=== PATIENT | female | born 1960 | race Caucasian/White ===

== ENCOUNTER 2025-03-12 11:55 | Day surgery (SDC) | payer MEDICARE, MEDICAID, SELFPAY ==
--- NOTE | 2025-03-09 06:00 | EKG_ITS ---
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
[2025-03-09 12:44] LABS: Basophils # (Auto) 0.1 Thou/mm3 (0.0-0.2); Basophils % (Auto) 1 % (0-2.5); Eosinophils # (Auto) 0.3 Thou/mm3 (0.0-0.5); Eosinophils % (Auto) 4 % (0-10); Hematocrit 37.6 % (36.0-46.0); Hemoglobin 12.7 g/dL (12.0-16.0); Immature Granulocytes Auto 0.01 Thou/mm3 (0.00-0.00); Lymphocytes # (Auto) 2.4 Thou/mm3 (1.0-4.8); Lymphocytes % (Auto) 30 % (10-50); Mean Corpuscular HGB Conc 33.8 g/dl (31.0-37.0); Mean Corpuscular Hemoglobin 31.0 pg (25.0-35.0); Mean Corpuscular Volume 92 fL (80-100); Monocytes # (Auto) 0.8 Thou/mm3 (0.0-0.8); Monocytes % (Auto) 10 % (0-12); Neutrophils # (Auto) 4.4 Thou/mm3 (1.8-7.7); Neutrophils % (Auto) 55 % (37-80); Nucleated Red Blood Cell # 0.00 Thou/mm3 (0.00-0.00); Nucleated Red Blood Cell % 0 /100 WBC (0); Platelet Count 230 Thou/mm3 (140-440); RDW Standard Deviation 44.6 fL (36.4-46.3); Red Blood Count 4.10 Miln/mm3 (4.00-5.20); White Blood Count 8.0 Thou/mm3 (3.6-11.0)
[2025-03-09 12:54] LABS: INR 0.9 (0.9-1.3); Partial Thromboplastin Time 26.5 Seconds (22.0-36.0); Prothrombin Time 10.4 Seconds (9.0-12.2)
[2025-03-09 13:02] LABS: Alanine Aminotransferase 14 U/L (10-49); Albumin, Serum 4.3 gm/dL (3.4-4.8); Albumin/Globulin Ratio 1.7 (1.2-2.2); Alkaline Phosphatase 86 U/L (46-116); Anion Gap 7 (7-16); Aspartate Amino Transferase 22 U/L (0-34); BUN/Creatinine Ratio 17 Ratio (12-20); Bilirubin,Total 0.5 mg/dL (0.3-1.2); Blood Urea Nitrogen 19 mg/dL (9-23); Calcium 9.1 mg/dL (8.3-10.6); Calcium (Corrected) 9.1 mg/dL (8.5-10.1); Carbon Dioxide 28.9 mMol/L (20.0-31.0); Chloride 98 mMol/L (98-107); Creatinine (Component) 1.1 mg/dL (0.6-1.3); Globulin 2.6 gm/dL (2.3-3.5); Glucose 84 mg/dL (74-106); Osmolality,Calculated 269 (275-295); Potassium 4.4 mMol/L (3.4-5.1); Sodium 134 mMol/L (136-145); Total Protein 6.9 gm/dL (5.7-8.2); eGFR 56 See Note
[2025-03-12] VITALS (8 sets, daily range): BP systolic 146–184; BP diastolic 92–120; PULSE 86–99; RESP 14–20; TEMP 36.2–36.6; O2SAT 94–100; BMI 30.4
[2025-03-12] MEDS: RINGERS LACTATED 1000 ML 1,000 ML 20 ML IV ×2 (13:00→13:32)
--- NOTE | 2025-03-12 13:47 | SUR.PHASEII ---
pt received from OR in recovery bay 4. pt asleep but responds to voice, breathing unlabored on oxymask 4l. v/s stable. report received from Светлана LENNON and Dr. Joy.
--- NOTE | 2025-03-12 14:07 | XR_ITS ---
Examination: Gastrografin enema with KUB 20 spot fluoroscopic films of the colon Fluoroscopy March 12, 2025 1429 hours INDICATIONS: Incomplete colonoscopy today. FINDINGS: Manager Physical AP abdomen demonstrates mild small bowel ileus Colon filled retrograde matter to the cecum with reflux into terminal ileum Mild stool throughout the colon No constricting colonic lesion No rectal or other ulcerations Normal haustral pattern No diverticulosis IMPRESSION: No colonic lesions identified
--- NOTE | 2025-03-12 14:25 | SUR.PHASEII ---
pt taken down to radiology for barium enema xray for incomplete colonoscopy.
--- NOTE | 2025-03-12 15:55 | SUR.PHASEII ---
pt picked up from radiology
--- NOTE | 2025-03-12 16:25 | SUR.PHASEII ---
pt awake and alert, breathing unlabored on room air. v/s stable. pt able to ambulate to wheelchair with steady gait. d/c instructions given with Kameron in room, all questions answered. pt d/c via wheelchair with all belongings.
== END 2025-03-12 16:25 | disposition home or self-care (01) ==
PROVIDERS: Anesthesiology; Referring Provider Surgery; Visit Provider Surgery
PROC: 0DJD8ZZ Inspection of Lower Intestinal Tract, Via Natural or Artificial Opening Endoscopic (ICD-10-PCS; CPT 45378; principal; 2025-03-12 13:00)
DX: Z12.11 Encounter for screening for malignant neoplasm of colon (principal); Z01.810 Encounter for preprocedural cardiovascular examination; I44.0 Atrioventricular block, first degree; I44.4 Left anterior fascicular block; I10 Essential (primary) hypertension; Z86.73 Personal history of transient ischemic attack (TIA), and cerebral infarction without residual deficits
CPT/HCPCS: G0121; 36415; 74270; 80053; 85025; 85610; 85730; 93005; J7120; Q9963